=== PATIENT | female | born 1985 | race Caucasian/White ===

== ENCOUNTER 2018-04-28 12:23 | Day surgery (SDC) | payer MEDICAID, OTHER ==
[~2018-04-28 12:23] MED LIST: ACETAMINOPHEN 1,000 MG/100 ML INJ IV ONE; DEXAMETHASONE SOD PHOS 4 MG/ML VIAL ONE; ENOXAPARIN SODIUM 40 MG/0.4 ML DISP.SYRIN SQ ONE; FAMOTIDINE 20 MG/2 ML VIAL ONE; FENTANYL CITRATE/PF 250 MCG/5 ML INJ. ONE; LACTATED RINGERS 1,000 ML IV.SOLN IV ONE; LIDOCAINE HCL 2% PF 100MG/5ML VIAL IJ ONE; MIDAZOLAM HCL 2 MG/2 ML VIAL ONE; MORPHINE SULFATE 10 MG/ML VIAL ONE; NORMAL SALINE 1,000 ML IV.SOLN IV ONE; ONDANSETRON HCL/PF 4 MG/ 2ML VIAL ONE; PROPOFOL 200 MG/20 ML VIAL IV ONE; ROCURONIUM BROMIDE 10 MG/ML 5ML VIAL ONE; SCOPOLAMINE HYDROBROMIDE 1.5MG/72HR PATCH TD ONE; SEVOFLURANE 250 ML LIQUID IH ONE; SODIUM CHLORIDE IRRIG SOLUTION 3,000 ML IRRIG.SOLN IR ONE; SUGAMMADEX SODIUM 200 MG/2 ML VIAL IV ONE; ceFAZolin SODIUM 1 GM VIAL ONE
[2018-04-28] MEDS ORDERED: SCOPOLAMINE HYDROBROMIDE 1.5MG/72HR PATCH TD ONE (13:09)
[2018-04-28] MEDS ORDERED: LACTATED RINGERS 1,000 ML IV ONE (13:09)
[2018-04-28] MEDS ORDERED: ENOXAPARIN SODIUM 40 MG/0.4 ML DISP.SYRIN SQ ONE (13:43)
[2018-04-28] MEDS ORDERED: LEVALBUTEROL HCL 1.25 MG/3 ML AMPUL.NEB NEB ONE (13:43)
== END 2018-04-28 17:29 | disposition other institution (70) ==
LOC: OPSURG 12:23
PROVIDERS: ATTEND Surgery
DX: E66.01 Morbid (severe) obesity due to excess calories (principal); Z68.43 Body mass index [BMI] 50.0-59.9, adult
CPT/HCPCS: 43235; J0690; J1100; J1650; J2001; J2250; J2270; J2405; J2704; J7614; 43775; A9270-GY; J7030; J7120

== ENCOUNTER 2018-04-28 17:30 | Inpatient (IN) | payer MEDICAID, OTHER ==
[2018-04-28] MEDS ORDERED: MORPHINE SULFATE 10 MG/ML VIAL IVP PRN (17:35)
[2018-04-28] MEDS ORDERED: LEVALBUTEROL HCL 1.25 MG/3 ML AMPUL.NEB NEB PRN (17:35)
[2018-04-28] MEDS ORDERED: PROMETHAZINE HCL 25 MG in 0.9 % SODIUM CHLORIDE 50 ML IV PRN (17:35)
[2018-04-28] MEDS ORDERED: ONDANSETRON HCL/PF 4 MG/ 2ML VIAL IVP PRN (17:35)
--- NOTE | 2018-04-28 17:50 | History and Physical Report ---
History of Present Illnes - History of Present Illness Reason for Visit: S/P Gastric Sleeve History of Present Illness: Patient is a 32-year-old white female who has tried multiple diets and exercise programs with no success. Patient and surgeon decided to proceed with gastric sleeve procedure. Procedure went well without complications- patient will be admitted and monitored s/p surgical intervention. - Past Medical History Cardiac: denies: CHF, HTN Pulmonary: denies: Asthma, COPD COMPENSATION INTERN: Other (Hx of Headaches) Gastrointestinal: GERD Heme/Onc: denies: Anemia NOS, B12 deficiency Hepatobiliary: denies: Hep A/B/C Psych: Anxiety, Bipolar, Depression (Loss of child) Musculoskeletal: denies: Osteoarthritis Rheumatologic: denies: Fibromyalgia Infectious Disease: denies: HIV ENT: denies: Sinusitis Renal/: UTI. denies: Acute renal failure Endocrine: Hypothyroidism, obesity (binge eater). denies: Diabetes Dermatology: denies: Eczema Grav: 4 Para: 4 Ab: 0 - Past Surgical History Past Surgical History: Cholecystectomy, (x4) - Past Family History Father Family History: Cancer, DM, Other (obesity) Mother Family History: DM - Past Social History Smoke: 1 pack per day Alcohol: None Drugs: None Lives: With Family Domestic Violence: Negative - Health Maintenance Health Maintenance: denies: Influenza Vaccine, HIV Influenza Vaccine: Patient Refused Pneumonia Vaccine: No Resuscitation Status: Resusciation Status Resuscitation Status Full Code - Unable to Obtain History Unable to Obtain: No Review of Systems - Review of Systems Constitutional: negative: Fever, Chills Eyes: negative: pain, vision change ENT: negative: Ear Pain, Nose Pain, Mouth Pain Respiratory: Cough (smoker). negative: Shortness of Breath, Wheezing Cardiovascular: negative: Chest Pain, Edema Gastrointestinal: Nausea, Abdominal Pain (s/p gastric sleeve). negative: Vomiting Genitourinary: negative: Dysuria Musculoskeletal: negative: Shoulder Pain Skin: negative: Rash Neurological: negative: Weakness, Incoordination - Medications/Allergies Home Medications: Home Medications Alprazolam [Xanax] 1 mg PO TID 04/28/18 DULoxetine HCL [Cymbalta] 90 mg PO HS 04/28/18 Levothyroxine Sodium [Levoxyl] 112 mcg PO 0700 04/28/18 Norgestimate-Ethinyl Estradiol [Ortho Tri-Cyclen 28 Tablet] 1 each PO DAILY 04/28/18 Ranitidine HCl 150 mg PO DAILY 04/28/18 Current Inpatient Medications: Current Inpatient Medications Alprazolam (Xanax) 1 mg PO TID [facility] Cefazolin Sodium/Dextrose (Cefazolin 1 G/50 Ml-Dextrose) 1 gm IV Q8H [facility] Stop: 04/29/18 07:46 Duloxetine HCl (Cymbalta) 90 mg PO HS [facility] Enoxaparin Sodium (Lovenox) 40 mg SQ QD [facility] Stop: 05/12/18 17:59 Famotidine (Pepcid) 20 mg IVP BID [facility] Stop: 04/29/18 20:59 Promethazine HCl 25 mg/ Sodium (Chloride) 51 mls @ 600 mls/hr IV Q6 PRN PRN Reason: Nausea / Vomiting Stop: 05/02/18 17:34 Sodium Chloride (Normal Saline) 1,000 mls @ 150 mls/hr IV Q8H [facility] Ketorolac Tromethamine (Toradol) 30 mg IVP Q6 PRN PRN Reason: For Mild Pain Stop: 05/02/18 17:34 Levalbuterol HCl (Xopenex) 1.25 mg NEB Q4 PRN PRN Reason: SOA, Dyspnea, or Wheezing Stop: 05/02/18 17:34 Levothyroxine Sodium (Synthroid) 100 mcg PO 0700 [facility] Levothyroxine Sodium (Synthroid) 12.5 mcg PO 0700 [facility] Morphine Sulfate (Morphine Sulfate) 4 mg IVP Q4 PRN PRN Reason: Severe Pain Ondansetron HCl (Zofran 4 Mg/2 Ml) 4 mg IVP Q6H PRN PRN Reason: Nausea / Vomiting Stop: 05/02/18 17:34 Exam - Exam Vital Signs: Vital Signs (72 hours) 04/28/18 17:30 Temperature 97.7 F Pulse Rate [ 97 H Right] Respiratory 18 Rate Blood Pressure 138/76 [Right Arm] O2 Sat by Pulse 94 Oximetry General: Alert, Oriented to Person, Oriented to Place, Oriented to Time, Cooperative, Mild distress HEENT: Atraumatic, PERRLA, Mouth Mucous membr. moist/[place], Nose Mucous membr. moist/[place] Neck: Normal Range of Motion. No: Stridor Lungs: Clear to auscultation, Normal air movement, Speaks full Sentences. No: Wheezes, Rales Cardiovascular: Regular rate, Normal S1, Normal S2, No murmurs, Other Abdomen: Decreased Bowel Sounds. No: Distended, Rigid Integumentary: Normal, [place], Warm, Dry Extremities: No cyanosis, No edema, Normal pulses, No tenderness/swelling Neurological: Normal gait, Normal speech, Strength Equal Bilat, Sensation intact Psych/Mental Status: Mental status NL, Mood NL, Appropriate Affect Assessment/Plan - Assessment/Plan (1) S/P gastric surgery Status: Acute Current Visit: Yes Assessment: Incision site drsgs intact- LCTA, no pain/tenderness to legs, will monitor oral intake, Plan: Plan is to have patient up and walking frequently, SCDs while in bed, and Lovenox to prevent DVTs, using IS frequently to prevent resp illness, PPI IV, IVF until patient can tolerate oral, will monitor incision sites for infection, will monitor VS, lungs, and bowel (2) Morbid obesity due to excess calories Status: Acute Current Visit: Yes Plan: S/P Gastric Sleeve (3) Anxiety and depression Status: Acute Current Visit: Yes Assessment: Stable on home meds Plan: Will continue home meds (4) Hypothyroid Status: Acute Current Visit: Yes Qualifiers: Hypothyroidism type: acquired Qualified Code(s): E03.9 - Hypothyroidism, unspecified Assessment: stable on home meds Plan: Will continue home meds (5) GERD (gastroesophageal reflux disease) Status: Acute Current Visit: Yes Qualifiers: Esophagitis presence: without esophagitis Qualified Code(s): K21.9 - Gastro-esophageal reflux disease without esophagitis Assessment: Stable on home meds Plan: Will give PPI IV while admitted VTE Assessment - RISK FACTOR SCORE VTE RISK FACTOR SCORES: OBESITY, SMOKER, MAJOR SURGERY/ANESTHESIA TIME > 1 HOUR (Lovenox daily, ambulate frequently, SCDs while in bed)
[2018-04-28] MEDS ORDERED: ENOXAPARIN SODIUM 40 MG/0.4 ML DISP.SYRIN SQ SCH (18:00)
[2018-04-28] MEDS: ALPRAZOLAM 0.5 MG TABLET PO SCH (18:14)
[2018-04-28] MEDS: 0.9 % SODIUM CHLORIDE 1,000 ML IV SCH (18:29)
[2018-04-28 19:24] VITALS: BMI 109.9
[2018-04-28] MEDS ORDERED: MORPHINE SULFATE 5 MG/ML ML IV PRN (19:34)
[2018-04-28] MEDS: KETOROLAC TROMETHAMINE 30 MG/1ML VIAL IVP PRN (19:58)
[2018-04-28] MEDS: NICOTINE 14mg PATCH.TD24 TD SCH (20:01)
[2018-04-28] MEDS: FAMOTIDINE 20 MG/2 ML VIAL IVP SCH (20:01)
[2018-04-28] MEDS: DULoxetine HCL 30 MG CAPSULE.DR PO SCH (20:01)
[2018-04-28] MEDS: HYDROcodone /APAP 10/325 1 EACH TABLET PO PRN (22:53)
[2018-04-28] MEDS: CEFAZOLIN SODIUM/DEXTROSE,ISO 1 GM/50 ML PIGGYBACK IV SCH (22:54)
[2018-04-29] MEDS: 0.9 % SODIUM CHLORIDE 1,000 ML IV SCH ×4 (00:55→22:46)
[2018-04-29] MEDS: LEVOTHYROXINE SODIUM 100 MCG TABLET PO SCH (06:08)
[2018-04-29] MEDS: LEVOTHYROXINE SODIUM 25 MCG TABLET PO SCH (06:08)
[2018-04-29] MEDS: HYDROcodone /APAP 10/325 1 EACH TABLET PO PRN ×3 (06:17→20:57)
[2018-04-29] MEDS ORDERED: LEVOTHYROXINE SODIUM 112 MCG PO SCH (07:00)
[2018-04-29] MEDS: NICOTINE 14mg PATCH.TD24 TD SCH (08:27)
[2018-04-29] MEDS: FAMOTIDINE 20 MG/2 ML VIAL IVP SCH (08:28)
[2018-04-29] MEDS: KETOROLAC TROMETHAMINE 30 MG/1ML VIAL IVP PRN (08:29)
[2018-04-29] MEDS: ALPRAZOLAM 0.5 MG TABLET PO SCH ×3 (08:40→21:12)
--- NOTE | 2018-04-29 08:46 | Inpatient Progress Note ---
Subjective - Required Recertification Statement I anticipate X number of days because-include discharge plan: 1 - Review of Systems Subjective: Patient is doing well. Mild pain. Ambulating well. Moderate BM. Tolerating diet well. Objective - Exam Vitals and I&O: Vital Signs Temp 97.9 F 04/29/18 06:00 Pulse 86 04/29/18 06:00 Resp 20 04/29/18 06:00 BP 128/78 04/29/18 06:00 Pulse Ox 93 04/29/18 06:00 Intake & Output 04/28/18 04/28/18 04/29/18 11:59 23:59 11:59 Intake Total 90 Output Total 300 400 Balance -300 -310 Weight 309 kg Intake: Oral 90 Output: Urine 300 400 Other: # Voids 1 # Bowel Movements 0 General: Alert, Oriented to Person, Oriented to Place, Oriented to Time, Cooperative HEENT: Atraumatic, PERRLA, EOMI, Mouth Mucous membr. moist/[place] Lungs: Clear to auscultation, Normal air movement, Speaks full Sentences Cardiovascular: Regular rate Abdomen: Normal bowel sounds, Soft, No tenderness, Other (bandages c/d/i.) Assessment/Plan - Assessment/Plan (1) GERD (gastroesophageal reflux disease) Status: Acute Current Visit: Yes Qualifiers: Esophagitis presence: without esophagitis Qualified Code(s): K21.9 - Gastro-esophageal reflux disease without esophagitis (2) S/P gastric surgery Status: Acute Current Visit: Yes Plan: Doing well. Advance diet as tolerated.
[2018-04-29] MEDS: CEFAZOLIN SODIUM/DEXTROSE,ISO 1 GM/50 ML PIGGYBACK IV SCH (08:59)
[2018-04-29] MEDS ORDERED: ACETAMINOPHEN 325 MG TABLET PO PRN (11:17)
[2018-04-29] MEDS: ENOXAPARIN SODIUM 40 MG/0.4 ML DISP.SYRIN SQ SCH (11:19)
[2018-04-29] MEDS: PATIENT OWN MED 1 EACH EACH PO SCH (14:05)
[2018-04-29] MEDS: DULoxetine HCL 30 MG CAPSULE.DR PO SCH (21:13)
[2018-04-30] MEDS: HYDROcodone /APAP 10/325 1 EACH TABLET PO PRN ×2 (05:19→11:03)
[2018-04-30] MEDS: LEVOTHYROXINE SODIUM 25 MCG TABLET PO SCH (06:07)
[2018-04-30] MEDS: LEVOTHYROXINE SODIUM 100 MCG TABLET PO SCH (06:07)
--- NOTE | 2018-04-30 07:14 | Discharge Summary ---
Discharge Summary - Discharge Sumary History of Present Illness: Patient is a 32-year-old white female who has tried multiple diets and exercise programs with no success. Patient and surgeon decided to proceed with gastric sleeve procedure. Procedure went well without complications- patient will be admitted and monitored s/p surgical intervention. Condition at Discharge: Stable Home Medications: Ambulatory Orders Medication Instructions Recorded Alprazolam [Xanax] 1 mg PO TID 04/28/18 DULoxetine HCL [Cymbalta] 90 mg PO HS 04/28/18 Levothyroxine Sodium [Levoxyl] 112 mcg PO 0700 04/28/18 Norgestimate-Ethinyl Estradiol 1 each PO DAILY 04/28/18 [Ortho Tri-Cyclen 28 Tablet] Ranitidine HCl 150 mg PO DAILY 04/28/18 Consultations this Visit: None Procedures this Visit: Other (sleeve gastrectomy) Allergies/Adverse Reactions: Allergies Allergy/AdvReac Type Severity Reaction Status Date / Time No Known Allergies Allergy Verified 04/28/18 21:28 Patient Problems: Current Active Problems Problem Status Onset Anxiety and depression Acute GERD (gastroesophageal reflux disease) Acute Hypothyroid Acute Morbid obesity due to excess calories Acute S/P gastric surgery Acute The administrative codes within the [employer] content you are accessing may have as of 01/30/2018. Please contact your IT Dept/Help Desk and request the latest Regulatory release be installed. IT Dept/Help Desk- Please refer to our FAQ page ([email or web address] or contact [employer] Customer Support at [email or web address] Acute Hospital Course: Patient did well post operatively. Ambulation, SCD, IS and lovenox utilized. Tolerated advancing diet.
[2018-04-30 09:20] VITALS: BP 127/75
[2018-04-30] MEDS ORDERED: ONDANSETRON HCL 4 MG TAB.RAPDIS ONE (09:42)
[2018-04-30] MEDS: NICOTINE 14mg PATCH.TD24 TD SCH (09:51)
[2018-04-30] MEDS: ALPRAZOLAM 0.5 MG TABLET PO SCH (10:10)
[2018-04-30] MEDS: PATIENT OWN MED 1 EACH EACH PO SCH (11:05)
[2018-04-30] MEDS: ENOXAPARIN SODIUM 40 MG/0.4 ML DISP.SYRIN SQ SCH (11:08)
[2018-04-30] MEDS: 0.9 % SODIUM CHLORIDE 1,000 ML IV SCH (11:09)
== END 2018-04-30 11:00 | disposition home or self-care (01) | DRG 641 ==
LOC: SOUTH 17:30
PROVIDERS: ADMIT Nurse Practitioner Family; ATTEND Nurse Practitioner Family
DX: E66.01 Morbid (severe) obesity due to excess calories (principal); E03.9 Hypothyroidism, unspecified; K21.9 Gastro-esophageal reflux disease without esophagitis; F32.9 Major depressive disorder, single episode, unspecified; F41.9 Anxiety disorder, unspecified; F17.210 Nicotine dependence, cigarettes, uncomplicated
CPT/HCPCS: 99231; 99238; J1650; J1885; J2405; A9270; J7030